=== PATIENT | male | born 1965 | race Caucasian/White ===

== ENCOUNTER 2018-07-10 10:48 | Emergency (ER) | payer OTHER ==
[~2018-07-10] VITALS: Wt 110.0 kg
[~2018-07-10 10:48] MED LIST: HYDR-3498 PO; LEVO500T48 PO
[2018-07-10] MEDS: HYDROCODONE/APAP (10/325) TAB PO ONE ×2 (11:30→11:33)
[2018-07-10] MEDS ORDERED: morphine 4 MG/ML VIAL IM STA ×2 (11:35→13:34)
[2018-07-10] MEDS ORDERED: DEXAMETHASONE 10 MG/ML 1 ML INJ IM ONE (14:00)
[2018-07-10] MEDS ORDERED: HYDROCODONE/APAP (5/325) TAB PO ONE (14:00)
[2018-07-10] MEDS ORDERED: HYDR-4011 PO (14:52)
[2018-07-10 15:09] VITALS: BP 133/79; PULSE 94; RESP 17
--- NOTE | 2018-07-10 17:08 | ERD ---
ER Documentation Chief Complaint Chief Complaint R KNEE PAIN X 3 DAYS HPI History of Present Illness: 52-year-old male coming in today with complaint of right knee pain that started 3 days ago. Patient reports worsening pain. Patient denies injury or trauma. Patient reports he is not felt type of pain before turning. Patient denies any other associated symptoms At home pharmacological/nonpharmacological treatment for symptoms: denies Denies social concerns; Denies recent foreign travel ROS All systems reviewed and are negative except as per history of present illness. Medications Home Meds Active Scripts Hydrocodone/Acetaminophen ([place] 5-325 Tablet) 1 Each Tablet, 1 TAB PO Q8 PRN for PAIN, #8 TAB Prov:SHANE MORFIN NP 07/10/18 Levofloxacin* (Levaquin*) 500 Mg Tablet, 500 MG PO DAILY, #7 TAB Prov:MAYANK CAO MD 04/25/15 Hydrocodone Bit-Acetaminophen* ([place]*) 5-325 Mg Tab, 1 TAB PO Q4H PRN for PAIN, #1 TAB Prov:MAYANK CAO MD 04/25/15 Allergies Allergies: Coded Allergies: No Known Allergy (Unverified , 04/24/15) PMhx/Soc History of Surgery: Yes (appendectomy 1992) Anesthesia Reaction: No Hx Neurological Disorder: No Hx Respiratory Disorders: No Hx Cardiac Disorders: No Hx Psychiatric Problems: No Hx Miscellaneous Medical Probl: No Hx Alcohol Use: No Hx Substance Use: No Hx Tobacco Use: No Smoking Status: Never smoker FmHx Family History: diabetes; No coronary disease Physical Exam Vitals Vital Signs Date Temp Pulse Resp B/P (MAP) Pulse Ox O2 O2 Flow FiO2 Time Delivery Rate 07/10/18 98.9 94 17 133/79 97 Room Air 15:09 (97) 07/10/18 87 17 123/79 14:30 (94) 07/10/18 87 18 128/83 97 Room Air 13:39 (98) 07/10/18 99.0 95 18 147/75 99 10:51 (99) Physical Exam Const: No acute distress Head: Atraumatic Eyes: Normal Conjunctiva ENT: Normal External Ears, Nose and Mouth. Neck: Full range of motion. No meningismus. Resp: Clear to auscultation bilaterally Cardio: Regular rate and rhythm, no murmurs Abd: Soft, non tender, non distended. Normal bowel sounds Skin: No petechiae or rashes Back: No midline or flank tenderness Ext: No cyanosis. Tenderness to palpation noted to left knee, swelling noted, no deformity noted, mild warmth. Patient is neurovascularly intact distally. 2+ pedal pulses. Neur: Awake and alert Psych: Normal Mood and Affect Results 24 hrs Current Medications Medications Dose Sig/Afua Start Time Status Last (Trade) Ordered Route PRN Stop Time Admin Dose Reason Admin 1 tab ONCE ONCE 07/10/18 DC Acetaminophen PO 11:30 / 07/10/18 11:38 Hydrocodone Bitart ([place] (10/325)) Morphine 4 mg ONCE STAT 07/10/18 DC 07/10/18 Sulfate IM 11:35 11:43 (morphine) 07/10/18 11:38 Morphine 4 mg ONCE STAT 07/10/18 DC 07/10/18 Sulfate IM 13:34 13:43 (morphine) 07/10/18 13:36 1 tab ONCE ONCE 07/10/18 DC 07/10/18 Acetaminophen PO 14:00 14:29 / 07/10/18 14:01 Hydrocodone Bitart ([place] (5/325)) 10 mg ONCE ONCE 07/10/18 DC 07/10/18 Dexamethasone IM 14:00 13:43 (Decadron) 07/10/18 14:01 Procedures/MDM ED course includes a thorough examination and history. Medications: Morphine IM; (patient reports he is unable to take NSAIDs due to decreased kidney function 1 of his kidneys; patient initially declined hydrocodone dose due to concern that it may cause kidney damage) Imaging: Right knee x-ray Labs: -- Low suspicion for life-threatening medical emergency. Low suspicion for infectious emergency that requires hospitalization or immediate surgical intervention. No indication for antibiotics at this time. Suspicion for orthopedic emergency that requires hospitalization or immediate surgical intervention. No suspicion for DVT. No suspicion for septic joint. Otherwise healthy patient presenting with constellation of symptoms likely representing right knee pain/joint effusion; possibly gout or osteoarthritis as characterized by history, physical exam findings, radiologic findings. IMPRESSION: No evidence of acute fracture or dislocation of the knees. Mild osteoarthritis bilaterally, left greater than right. Moderate sized joint effusion on the left. RPTAT:AAJJ R-Wesly Anaya Physician Patient reassessment at 1330: Patient reporting decrease in pain. Patient was initially 9 of 10 pain currently 6 of 10 pain. Patient is requesting additional medications. Patient appears to be uncomfortable. Will order IM morphine 4 mg with documented stable vital signs. Will give 1 dose of [place] for discharge. Patient agrees with plan of care. Nursing notified. No respiratory distress, otherwise relatively well appearing and nontoxic. Patient with decreased pain. Patient reporting pain is now 4/10 after morphine second dose administered. Patient will get [place]. patient educated on diagnoses, prescriptions, follow-up care, return precautions. Strict return precautions given for worsening condition; questions answered discharge. Disposition for discharge with followup in 2 days with PCP/clinic. Strict return precautions if patient develops fever, increased warmth, increased swelling, chills, or any signs of worsening condition. Departure Diagnosis: Primary Impression: Joint effusion, knee Laterality: right Qualified Codes: M25.461 - Effusion, right knee Additional Impression: Right knee pain Chronicity: acute Qualified Codes: M25.561 - Pain in right knee Condition: Stable Patient Instructions: Knee Effusion, Osteoarthritis, R.I.C.E. Referrals: [facility] YOU HAVE RECEIVED A MEDICAL SCREENING EXAM AND THE RESULTS INDICATE THAT YOU DO NOT HAVE A CONDITION THAT REQUIRES URGENT TREATMENT IN THE EMERGENCY DEPARTMENT. FURTHER EVALUATION AND TREATMENT OF YOUR CONDITION CAN WAIT UNTIL YOU ARE SEEN IN YOUR DOCTORS OFFICE WITHIN THE NEXT 1-2 DAYS. IT IS YOUR RESPONSIBILITY TO MAKE AN APPOINTMENT FOR FOLOW-UP CARE. IF YOU HAVE A PRIMARY DOCTOR --you should call your primary doctor and schedule an appointment IF YOU DO NOT HAVE A PRIMARY DOCTOR YOU CAN CALL OUR PHYSICIAN REFERRAL HOTLINE AT IF YOU CAN NOT AFFORD TO SEE A PHYSICIAN YOU CAN CHOSE FROM THE FOLLOWING [facility] [address] [facility] [address] [facility] [facility] [address] [facility] [address] [facility] [address] [facility]. [facility] [address] [facility]. [facility] YOU HAVE RECEIVED A MEDICAL SCREENING EXAM AND THE RESULTS INDICATE THAT YOU DO NOT HAVE A CONDITION THAT REQUIRES URGENT TREATMENT IN THE EMERGENCY DEPARTMENT. FURTHER EVALUATION AND TREATMENT OF YOUR CONDITION CAN WAIT UNTIL YOU ARE SEEN IN YOUR DOCTORS OFFICE WITHIN THE NEXT 1-2 DAYS. IT IS YOUR RESPONSIBILITY TO MAKE AN APPOINTMENT FOR FOLOW-UP CARE. IF YOU HAVE A PRIMARY DOCTOR --you should call your primary doctor and schedule and appointment IF YOU DO NOT HAVE A PRIMARY DOCTOR YOU CAN CALL OUR PHYSICIAN REFERRAL HOTLINE AT . IF YOU CAN NOT AFFORD TO SEE A PHYSICIAN YOU CAN CHOSE FROM THE FOLLOWING [facility] INSTITUTIONS[facility] [facility] [address] [place] [address] [facility] [address] [place] [address] [facility] [address] [place] [address] Additional Instructions: Thank you very much for allowing us to participate in your care. Your health and safety is our top priority at [facility]. It is important to read all discharge instructions and education provided in your discharge packet. Call your primary care doctor TOMORROW for an appointment during the next 2-4 days and bring all the information and medications prescribed. Although the best treatment for your condition is NSAIDS (Motrin, ibuprofen, Naprosyn), we will not give those medications to you due to your current kidney condition that you report to us. No hard physical activity. Try to rest the knee as much as possible. Keep the Pérez wrap on as long as you can. Have prescriptions filled and follow precisely the directions on the label. -Hydrocodone/acetaminophen (NORCO)is an opiate pain medication; take this medication as needed for moderate to severe pain. No operating of heavy machinery while taking this medication. It may cause drowsiness. If the symptoms get worse and your provider is unavailable, return to the Emergency Department immediately. It is very important to follow-up with your primary care doctor for reevaluation of your symptoms. SHANE MORFIN NP Jul 10, 2018 17:08
== END 2018-07-10 15:25 | disposition home or self-care (01) ==
LOC: FTE 10:48
DX: M25.461 Effusion, right knee (principal)
CPT/HCPCS: 73562; 96372; 99284; J1100; J2270